=== PATIENT | male | born 1985 | race Hispanic/Latino ===

== ENCOUNTER 2024-08-22 12:01 | Emergency (ER) | payer OTHER, SELFPAY ==
--- NOTE | ~2024-08-22 | XR_ITS ---
Clinical Indication: Cough PA and lateral views of the chest: Comparison: None Findings: The lungs are clear, without evidence of focal consolidation or pleural effusion. Cardiome diastinal silhouette is within normal limits. Bones and soft tissues are unremarkable. Impression: Normal chest. Reviewed, dictated and finalized at location . Impression: Normal chest.
[2024-08-22 12:09] VITALS: BP 120/77; PULSE 61; RESP 20; TEMP 36.6; O2SAT 98
--- NOTE | 2024-08-22 12:39 | ED.URI ---
HPI - URI/Sore Throat General Chief Complaint: Upper Respiratory Infection Stated Complaint: Sinus Time Seen by Provider: 08/22/24 12:40 Source: patient, RN notes reviewed and old records reviewed Mode of arrival: ambulatory Limitations: no limitations and language barrier ([employer] utilized) History of Present Illness HPI Narrative: Patient presents with complaints of chest wall pain that radiates to the back that has been present intermittently for about 1 week. He denies any fever, chills, sweats. He reports slight cough. He does report some postnasal drainage. Has not been taking any medication for his symptoms. Denies any mitigating or exacerbating factors Related Data Allergies Allergy/AdvReac Type Severity Reaction Status Date / Time No Known Allergies Allergy Verified 08/22/24 12:07 Review of Systems Review of Systems: All systems reviewed & are unremarkable except as noted in HPI and below Constitutional: Constitutional: Reports no additional constitutional complaints ENT: Reports system reviewed and no additional complaints, except as documented Cardiovascular: Cardiovascular: Reports no additional cardiovascular complaints Respiratory: Respiratory: Reports no additional respiratory complaints, Reports chest congestion, Reports pain on inspiration and Reports pain with cough Gastrointestinal: Gastrointestinal: Reports no additional gastrointestinal complaints Musculoskeletal: Musculoskeletal: Reports as per HPI PMF Comments At the time of my signature, I reviewed and agree with the nursing past medical, surgical, social, and family history. There is no relevant family history pertinent to the patient complaint. Exam Const: General: cooperative, no acute distress, alert and awake Orientation/consciousness: oriented to person, oriented to place and oriented to time HENMT: Head: normal to inspection Ears: TM's normal bilaterally Mouth: Yes moist mucous membranes Throat: postnasal drainage Chest: Chest palpation & inspection: tenderness pectoral muscle bilaterally and sternum Resp: Effort & Inspection: normal respiratory effort and able to speak in complete sentences Auscultation: clear to auscultation bilaterally, no crackles, no rales, no rhonchi and no wheezes Cardio: Palpation: normal PMI Rate: regular rate Rhythm: regular rhythm Heart sounds: S1 normal heart sound present and S2 normal heart sound present Neuro: General: oriented to person, oriented to place and oriented to time Cranial nerves: Yes CN's II-XII intact bilaterally Psych: Appearance: grossly normal Thought process: Normal thought process present Insight: Good insight present (Psych) Judgement: Good judgement present (Psych) Course Course Level of Care: Express Care Visit Vital Signs Vital signs: Vital Signs Temperature 97.9 F 08/22/24 12:09 Pulse Rate 61 08/22/24 12:09 Respiratory Rate 20 08/22/24 12:09 Blood Pressure 120/77 08/22/24 12:09 Pulse Oximetry 98 08/22/24 12:09 Oxygen Delivery Room Air 08/22/24 12:09 Temperature 97.9 F 08/22/24 12:09 Pulse Rate 61 08/22/24 12:09 Respiratory Rate 20 08/22/24 12:09 Blood Pressure 120/77 08/22/24 12:09 Pulse Oximetry 98 08/22/24 12:09 Oxygen Delivery Room Air 08/22/24 12:09 Reviewed MDM - URI/Sore Throat MDM Narrative Medical decision making narrative: Patient with chest wall pain, completely reproducible on exam. Unremarkable chest x-ray. Patient with intermittent symptoms for 1 week in no distress, nontoxic appearing. Treat symptoms with prednisone burst. Follow with primary care, emergency department for new or worse symptoms. Discharge instructions reviewed with patient, as well as provided in writing per nursing staff. The instructions also include specific and strict return/GO TO THE ER as well as f/u information. All questions have been answered, and the patient deny any further questions with discharge and
== END 2024-08-22 13:40 | disposition home or self-care (01) ==
PROVIDERS: Emergency Provider Nurse Practitioner Family
DX: R07.89 Other chest pain (principal)
CPT/HCPCS: 71046; 99203; G0463

== ENCOUNTER 2025-11-26 12:07 | Emergency (ER) | payer OTHER, SELFPAY ==
--- NOTE | 2025-11-26 12:09 | ED.MALEGU ---
HPI - Male Genitourinary General Chief complaint: Urogenital-Male Stated complaint: pain in testicles Time Seen by Provider: 11/26/25 12:09 Source: patient Mode of arrival: ambulatory Limitations: no limitations History of Present Illness HPI Narrative: Patient is a 40-year-old male who presents with 3 days of testicular as penile pain along with foul-smelling odor and intermittent blood in urine. Denies any testicular swelling, fever, chills, nausea, vomiting, diarrhea, low back pain, urgency, frequency or dysuria. Patient reports injury to both testicles and left knee 3 months ago. Patient reports he has nightly testicular pain when moving. States testicles were bruised for 1 month. Patient had ultrasound 3 months ago on testicles but was not told there abnormal findings Related Data Home Medications ?Medication ?Instructions ?Recorded ?Confirmed ?Last Taken ?Type aspirin 81 mg tablet,delayed mg 11/26/25 Unknown History release duloxetine 60 mg capsule,delayed mg PO 11/26/25 Unknown History release ibuprofen 800 mg tablet mg 11/26/25 Unknown History Allergies Allergy/AdvReac Type Severity Reaction Status Date / Time No Known Allergies Allergy Verified 11/26/25 12:52 Review of Systems Review of Systems: All systems reviewed & are unremarkable except as noted in HPI and below Constitutional: Constitutional: Denies chills, Denies fever(s), Denies headache(s), Denies malaise and Denies weakness Eyes: Eyes: Denies change in vision, Denies eye discharge and Denies irritation ENT: Denies otalgia, Denies headache(s), Denies nasal congestion, Denies nasal discharge, Denies sinus pain and Denies sore throat Cardiovascular: Cardiovascular: Denies chest pain, Denies edema, Denies palpitations and Denies dyspnea Respiratory: Respiratory: Denies cough and Denies dyspnea Gastrointestinal: Gastrointestinal: Denies abdominal pain, Denies diarrhea, Denies nausea and Denies vomiting Genitourinary: Genitourinary: Reports hematuria, Reports genital pain, Denies dysuria, Denies flank pain, Denies penile discharge, Denies scrotal swelling and Denies urinary urgency Musculoskeletal: Musculoskeletal: Denies back pain and Denies numbness Integumentary/Breasts: Skin/Breast: Denies pruritus and Denies rash Neurologic: Denies headache(s), Denies numbness and Denies weakness Psychiatric: Psychiatric: Reports no additional psychiatric complaints Endocrine: Endocrine: Denies palpitations PMFSH Comments At time of signature, agree with nursing past medical, surgical, social and family history. There is no relevant family history pertinent to the presenting complaint. Exam Const: General: cooperative, healthy appearing, comfortable, no acute distress and well nourished Nutritional Appearance: well nourished Orientation/consciousness: patient oriented x3 HENMT: Head: normocephalic and atraumatic Ears: external ears normal Face/Nose/Sinus: Normal external nose present, Normal nares present and normal facial exam Face and sinus: normal facial exam Eyes: General: appearance normal, both eyes and all related structures Pupils: Equal, round and reactive pupils present EOM: EOMs intact bilaterally Neck: Neck: normal visual inspection, full ROM and supple Chest: Chest palpation & inspection: normal inspection of the chest Resp: Effort & Inspection: normal respiratory effort and able to speak in complete sentences Cardio: Rate: regular rate Rhythm: regular rhythm GI: Inspection: normal to inspection GI Palp: No abdominal tenderness and Yes Soft to palpation : General: Yes no CVA tenderness Back/Spine/Pelvis: Back: no CVA tenderness Skin: General skin exam: normal color and no rashes or lesions noted Neuro: General: patient oriented x3 and moves all extremities Cranial nerves: Yes Equal, round and reactive pupils present Extrem: General: normal to inspection and full ROM Psych: Appearance: grossly normal and well kempt Course Course Emergency Course: Patient is aware of diagnosis, understands and agrees to treatment plan. Anticipatory guidance given. Patient agrees to follow-up as directed and is aware of reasons to seek care at the emergency department. Portions of this record may have been created with voice recognition software Level of Care: Express Care Visit Vital Signs Vital signs: Vital Signs Temperature 36.6 C 11/26/25 12:18 Pulse Rate 86 11/26/25 12:18 Respiratory Rate 20 11/26/25 12:18 Blood Pressure 130/78 11/26/25 12:18 Pulse Oximetry 99 11/26/25 12:18 Oxygen Delivery Room Air 11/26/25 12:18 Temperature 36.6 C 11/26/25 12:18 Pulse Rate 86 11/26/25 12:18 Respiratory Rate 20 11/26/25 12:18 Blood Pressure 130/78 11/26/25 12:18 Pulse Oximetry 99 11/26/25 12:18 Oxygen Delivery Room Air 11/26/25 12:18 [facility] Narrative Medical decision making narrative: Based on symptoms and positive point of care UA, patient will be treated with antibiotics. will give follow-up for Urology as symptoms have been persistent for 3 months Pt well hydrated appearing, in no respiratory distress, hemodynamically stable. Recommend supportive care. The patient is stable at time of discharge the clinical impression was discussed and the patient was given the opportunity to ask questions, which were addressed as completely as possible given the information available at present. Anticipatory guidance and return to care precautions were discussed and the importance of primary care follow-up was stressed and encouraged. The patient voiced understanding of the plan, indications to return, and the need for follow-up. Exam findings show no acute concerns or changes Patient is appropriate for outpatient treatment and follow-up. Differential Diagnosis Differential Diagnosis: Differential diagnostic considerations for male genitourinary issues include urinary tract infection, priapism, epididymitis, prostatitis, acute retention of urine, inguinal hernia, STI exposure, testicular torsion, Jorge?s gangrene. Medical Records I have reviewed the following patient records and this information was taken into consideration when formulating the assessment and plan.: previous clinic visits Lab Data [facility] Lab Attestation statement: I personally reviewed the patient's lab results. Labs: Lab Results 11/26/25 Range/Units 12:21 POC Urine Color [place] POC Urine Clarity Clear POC Urine pH 5.5 POC Ur Specif [place] 1.020 POC Urine Protein Negative (Negative) POC Ur Glucose (UA) Negative (Negative) POC Urine Ketones Negative (Negative) POC Urine Blood Negative (Negative) POC Urine Nitrite Negative (Negative) POC Urine Bilirubin Negative (Negative) POC Urine Urobilinogen 0.2 POC U Leukocyte Esteras Trace (Negative) Discharge Plan Discharge Clinical Impression: Acute UTI Patient Disposition: Home Condition: Stable Instructions: Urinary Tract Infection in Men (ED) Additional Instructions: Enviaremos pedro muestra de orina al laboratorio y, bas?ndonos en melissa s?ntomas y el an?lisis de orina, comenzaremos el tratamiento hoy mismo. Si el cultivo muestra que la bacteria no es sensible al antibi?gabino, es posible que se modifique condon receta. Melissa s?ntomas deber?an mejorar en un d?a despu?s de comenzar con los antibi?ticos, piero debe terminar todas las pastillas que le recetaron. De lo contrario, la infecci?n podr?a reaparecer. Contin?e bebiendo cindy agua. [place] paracetamol o ibuprofeno seg?n sea necesario para el dolor o la fiebre. Consulte con condon m?dico de cabecera para un nuevo an?lisis de orina o acuda a la lorna de emergencias si condon estado empeora con fiebre saulo, n?useas, v?mitos o dolor de espalda intenso. Patient Language: [place] Prescriptions: New cephalexin 500 mg capsule 500 mg PO QID 7 Days Qty: 28 0RF No Action ibuprofen 800 mg tablet aspirin 81 mg tablet,delayed release (DR/EC) duloxetine 60 mg capsule,delayed release(DR/EC) PO Follow-up/Referrals: Papo,BELL Villegas [Primary Care Provider] - 3 Days Vickie,Gen Sifuentes MD [Non-Staff, Urology] - 3 Days Referral Note: testicular pain and hematuria Time of Disposition: 12:56
[2025-11-26 12:18] VITALS: BP 130/78; PULSE 86; RESP 20; TEMP 36.6; O2SAT 99
[2025-11-26 12:32] LABS: EDUAAPPEAR Clear; EDUABILI Negative (Negative); EDUABLOOD Negative (Negative); EDUACOLOR1 Pink; EDUAGLUCOSE Negative (Negative); EDUAKETONE Negative (Negative); EDUALEUKO Trace (Negative); EDUANITRATE Negative (Negative); EDUAPH 5.5; EDUAPROTEIN Negative (Negative); EDUASPGRAVITY 1.020; EDUAUROBILI 0.2
== END 2025-11-26 13:05 | disposition home or self-care (01) ==
PROVIDERS: Emergency Provider Nurse Practitioner Family; PCP Registered Nurse
DX: N39.0 Urinary tract infection, site not specified (principal); Z79.82 Long term (current) use of aspirin
CPT/HCPCS: 81003; 87086; 99213; G0463